=== PATIENT | male | born 1960 | race Caucasian/White ===

== ENCOUNTER 2016-10-25 18:23 | Emergency (ER) | payer MEDICAID ==
[~2016-10-25] VITALS: Ht 177.8 cm; Wt 58.0 kg
[~2016-10-25 18:23] MED LIST: KENC1 TOP; SLEEPING PILL
[2016-10-25 18:42] VITALS: Ht 177.8 cm; Wt 58.0 kg
[2016-10-25] MEDS ORDERED: IBUPROFEN 600 MG TAB PO ONE (21:30)
--- NOTE | 2016-10-25 21:41 | RADRPT ---
PROCEDURE: Right knee radiographs. CLINICAL INDICATION: Trauma due to a fall. Right knee pain. TECHNIQUE: Three views. Frontal, lateral, and oblique. COMPARISON: 02/03/2014 FINDINGS: In the interval since the prior study, there has been marked progression of osteoarthritis with medi al and lateral joint compartment narrowing, subarticular sclerosis, large osteophytes, and deformity . There is a joint effusion. There is deformity of the medial tibial plateau which may be due to the osteoarthritis or fracture. There is no lytic or blastic lesion. There is no radiopaque foreign body. IMPRESSION: 1. Marked progression of osteoarthritis. 2. Joint effusion. 3. Deformity of the medial tibial plateau which may be due to the osteoarthritis or fracture. Danuta elation with CT scan or MRI should be considered. 4. No other acute abnormality. RPTAT: QQ .Lion Hardy MD, MD Date Time Electronically viewed and signed by .Lion Hardy MD, on 10/25/2016 21:40 .R/
--- NOTE | 2016-10-26 00:23 | ERD ---
ER Documentation Chief Complaint Date/Time DATE: 10/26/16 TIME: 00:07 Chief Complaint Right knee pain X5 months HPI Patient is a 56-year-old male complaining of right knee pain status post fall today. Patient states that he was using a FWW and fell while turning in a corner. Patient landed on his right knee and denies any head trauma or loss of consciousness. Patient states that he also fell 4 months ago. Right knee pain is aggravated upon ambulation. Denies any numbness or tingling on both lower extremities. Patient lives in a residential facility and states that he does not want go back there upon discharge. ROS All systems reviewed and are negative except as per history of present illness. Medications Home Meds Active Scripts Triamcinolone Acetonide (Triamcinolone Acetonide) 0.1% - 15 Gm Cream.gm., 1 APPLIC TOP BID for 7 Days, #1 TUB Prov:PAIGE WOOD MD 01/15/16 Reported Medications [Sleeping Pill] No Conflict Check 03/26/11 Allergies Allergies: Coded Allergies: No Known Drug Allergies (Verified Allergy, Unknown, 01/15/16) PMhx/Soc Medical and Surgical Hx: pt denies Surgical Hx History of Surgery: No Anesthesia Reaction: No Hx Neurological Disorder: No Hx Respiratory Disorders: No Hx Cardiac Disorders: No Hx Psychiatric Problems: Yes (BIPOLAR) Hx Miscellaneous Medical Probl: No Hx Alcohol Use: No Hx Substance Use: No Hx Tobacco Use: Yes (1 ppd) Smoking Status: Current every day smoker Physical Exam Vitals Vital Signs Date Time Temp Pulse Resp B/P Pulse Ox O2 Delivery O2 Flow Rate FiO2 10/25/16 18:42 99.0 81 20 133/77 98 Physical Exam Physical Exam CONST: Well-developed, well-nourished, in no acute distress. Nontoxic in appearance. HEENT: Atraumatic. Normal conjunctiva. EOM intact. TM intact. External ear is normal. Clear oropharnyx without erythema. No uvular deviation. Moist mucous membranes. Supple neck. No meningismus. No submandibular induration. RESP: Clear to auscultation bilaterally. No wheezing. CARDIO: Regular rate and rhythm, no murmurs. ABD: Soft, non tender, non distended. Normal bowel sounds. No McBurney's point tenderness. No guarding or rigidity. No peritoneal signs. SKIN: No petechiae or rashes. BACK: No midline or flank tenderness. EXT: Tenderness on the right anterior knee. No cyanosis or edema. Distal pulses equal and bilateral. NEURO: Awake and alert, appropriate for age. Results 24 hrs Current Medications Medications (Trade) Dose Ordered Sig/Raz Route PRN Reason Start Time Stop Time Status Last Admin Dose Admin Ibuprofen (Motrin) 600 mg ONCE ONCE PO 10/25/16 21:30 10/25/16 21:31 DC 10/25/16 21:16 PROCEDURE: Right knee radiographs. CLINICAL INDICATION: Trauma due to a fall. Right knee pain. TECHNIQUE: Three views. Frontal, lateral, and oblique. COMPARISON: 02/03/2014 FINDINGS: In the interval since the prior study, there has been marked progression of osteoarthritis with medial and lateral joint compartment narrowing, subarticular sclerosis, large osteophytes, and deformity. There is a joint effusion. There is deformity of the medial tibial plateau which may be due to the osteoarthritis or fracture. There is no lytic or blastic lesion. There is no radiopaque foreign body. IMPRESSION: 1. Marked progression of osteoarthritis. 2. Joint effusion. 3. Deformity of the medial tibial plateau which may be due to the osteoarthritis or fracture. Correlation with CT scan or MRI should be considered. 4. No other acute abnormality. RPTAT: QQ .Paige Hardy MD, MD Date Time Electronically viewed and signed by .Paige Hardy MD, MD on 10/25/2016 21:40 Procedures/MDM EMERGENCY DEPARTMENT COURSE/MEDICAL DECISION MAKING This is a 56-year-old male who comes to the emergency room secondary to complaints of right knee pain status post mechanical fall. Patient lives and a residential facility and he wishes not to go back to upon discharge. Spoke with protective services social worker Corey regarding the patient's wishes. She contacted the facility ([facility] tel: [phone]) and per protective services social worker, patient has to go back to the facility to fill the paperwork in order for him to be transferred. The patient was given ibuprofen in the department. On re-evaluation, the patient 's symptoms improved. Right knee x-ray was done and was interpreted by a radiologist. Results shows marked progression of osteoarthritis, joint effusion and deformity of the medial tibial plateau which may be due to the osteoarthritis or fracture. Correlation with CT scan or MRI should be considered. Case was presented to Dr. Patterson and he recommended to order a CT of the right lower extremity. Patient left AGAINST MEDICAL ADVICE prior to CT scan. Patient has been told about the risks and consequences involved in leaving the hospital. Patient signed the AMA form. My primary diagnosis is pain of left leg. Secondary diagnosis is injury of left leg Differential diagnoses considered but not limited to fractures, dislocations, compartment syndrome, neurologic injury, vascular injury, tendon laceration, septic arthritis, osteomyelitis, DVT, foreign body, muscle sprain/strain.. Departure Diagnosis: Primary Impression: Pain of left leg Additional Impression: Injury of left leg Encounter type: initial encounter Qualified Code: S89.92XA - Injury of left leg, initial encounter Condition: Stable Patient Instructions: Fall Prevention, Knee Pain, Uncertain Cause [facility]: [facility] Additional Instructions: Follow-up with an police specialist in 1 week. Follow-up with your primary care physician in 1-2 days. Return to the emergency department immediately should you have any new or worsening symptoms, uncontrolled fevers, or other unexplained symptoms. Take all medications as directed. KELTON PEREA Oct 26, 2016 00:22
== END 2016-10-25 22:46 | disposition left against medical advice (07) ==
LOC: FTE 18:23
DX: S89.92XA Unspecified injury of left lower leg, initial encounter (principal); F17.210 Nicotine dependence, cigarettes, uncomplicated; V68.9XXA Unspecified occupant of heavy transport vehicle injured in noncollision transport accident in traffic accident, initial encounter
CPT/HCPCS: 73562; Z7610

== ENCOUNTER 2018-07-22 15:55 | Emergency (ER) | END 2018-07-22 16:44 | disposition home or self-care (01) ==

== ENCOUNTER 2018-10-20 17:55 | Emergency (ER) | payer MEDICAID ==
[~2018-10-20] VITALS: Ht 177.8 cm; Wt 60.3 kg
[~2018-10-20 17:55] MED LIST changes: -KENC1 TOP; +NAPR-985 PO; -SLEEPING PILL
[2018-10-20 18:34] VITALS: Ht 177.8 cm; Wt 60.3 kg
[2018-10-20] MEDS ORDERED: KETOROLAC 30 MG INJ IM STA (22:37)
[2018-10-20] MEDS ORDERED: HYDROCODONE/APAP (5/325) TAB PO ONE (23:00)
[2018-10-21] MEDS ORDERED: NAPR-985 PO (01:43)
--- NOTE | 2018-10-21 01:48 | ERD ---
ER Documentation Chief Complaint Chief Complaint pain right knee/right ankle x 3 years, more today. denies injury HPI 38-year-old male coming in today with Chief Complaint: Right extremity pain History of Present Illness: Patient reporting right knee and ankle pain present for 3 years, history of having to get her ER visits and medications for pain. Patient reports exacerbation of pain in the past 2-3 days. Denies injury or trauma. Denies any other associated symptoms. Denies use of medications at home for pain. Review of systems: All systems were reviewed and are negative except for what is indicated in the history of present illness. Past Medical History: Diabetes Social History: Patient reports tobacco and alcohol use. Denies drug use. Medications: See nursing documentation Allergies: NKDA Social Concerns: Patient reports homelessness ROS All systems reviewed and are negative except as per history of present illness. Medications Home Meds Active Scripts Naproxen* (Naprosyn*) 500 Mg Tablet, 500 MG PO BID PRN for PAIN AND/OR INFLAMMATION, #60 TAB Prov:SELENA RATLIFF NP 10/21/18 Naproxen* (Naprosyn*) 500 Mg Tablet, 500 MG PO BID PRN for PAIN AND/OR INFLAMMATION, #60 TAB Prov:RENETTA HUGHES MD 07/22/18 Allergies Allergies: Coded Allergies: No Known Drug Allergies (Verified Allergy, Unknown, 07/22/18) PMhx/Soc History of Surgery: No Anesthesia Reaction: No Hx Neurological Disorder: No Hx Respiratory Disorders: No Hx Cardiac Disorders: No Hx Psychiatric Problems: Yes (BIPOLAR) Hx Miscellaneous Medical Probl: Yes (DM, homeless) Hx Alcohol Use: No Hx Substance Use: No Hx Tobacco Use: No Smoking Status: Never smoker Physical Exam Vitals Vital Signs Date Temp Pulse Resp B/P (MAP) Pulse Ox O2 O2 Flow FiO2 Time Delivery Rate 10/20/18 98.3 79 18 135/75 97 18:34 (95) Physical Exam Const: No acute distress Head: Atraumatic Eyes: Normal Conjunctiva ENT: Normal External Ears, Nose and Mouth. Neck: Full range of motion. No meningismus. Resp: Clear to auscultation bilaterally Cardio: Regular rate and rhythm, no murmurs Abd: Soft, non tender, non distended. Normal bowel sounds Skin: No petechiae or rashes Back: No midline or flank tenderness Ext: No cyanosis, or edema. No erythema, warmth, swelling noted to right knee and right ankle. NVI distally. Neur: Awake and alert Psych: Normal Mood and Affect Results 24 hrs Current Medications Medications Dose Sig/Raz Start Time Status Last (Trade) Ordered Route PRN Stop Time Admin Dose Reason Admin 1 tab ONCE ONCE 10/20/18 DC 10/20/18 Acetaminophen PO 23:00 22:46 / 10/20/18 23:01 Hydrocodone Bitart (Downey (5/325)) Ketorolac 30 mg ONCE STAT 10/20/18 DC Tromethamine IM 22:37 (Toradol) 10/20/18 22:40 Procedures/MDM ED course includes a thorough examination and history. ED course includes medication administration; Toradol and Downey. ED course includes Bucky wrap administration. ED course includes older adult social work specialist consult due to homelessness. Low suspicion for life-threatening medical emergency Otherwise healthy patient presenting with constellation of symptoms likely representing uncomplicated arthritis as characterized by history, physical exam findings. No respiratory distress, otherwise relatively well appearing and nontoxic. Patient educated on diagnoses, prescriptions, follow-up care, return precautions. Strict return precautions given for worsening condition; questions answered discharge. Conditional discharge pending older adult social work specialist consult. Disposition for discharge with followup in 2-3 days with PCP/clinic. Departure Diagnosis: Primary Impression: Right ankle pain Chronicity: acute Qualified Codes: M25.571 - Pain in right ankle and joints of right foot Additional Impression: Right knee pain Chronicity: acute Qualified Codes: M25.561 - Pain in right knee Condition: Stable Patient Instructions: Arthralgia Referrals: [facility] YOU HAVE RECEIVED A MEDICAL SCREENING EXAM AND THE RESULTS INDICATE THAT YOU DO NOT HAVE A CONDITION THAT REQUIRES URGENT TREATMENT IN THE EMERGENCY DEPARTMENT. FURTHER EVALUATION AND TREATMENT OF YOUR CONDITION CAN WAIT UNTIL YOU ARE SEEN IN YOUR DOCTORS OFFICE WITHIN THE NEXT 1-2 DAYS. IT IS YOUR RESPONSIBILITY TO MAKE AN APPOINTMENT FOR FOLOW-UP CARE. IF YOU HAVE A PRIMARY DOCTOR --you should call your primary doctor and schedule an appointment IF YOU DO NOT HAVE A PRIMARY DOCTOR YOU CAN CALL OUR PHYSICIAN REFERRAL HOTLINE AT IF YOU CAN NOT AFFORD TO SEE A PHYSICIAN YOU CAN CHOSE FROM THE FOLLOWING [facility] [address] [facility] [address] [facility] [address] [facility] [address] [facility] [address] [facility] [address] [facility]. [facility] [address] [facility]. [facility] YOU HAVE RECEIVED A MEDICAL SCREENING EXAM AND THE RESULTS INDICATE THAT YOU DO NOT HAVE A CONDITION THAT REQUIRES URGENT TREATMENT IN THE EMERGENCY DEPARTMENT. FURTHER EVALUATION AND TREATMENT OF YOUR CONDITION CAN WAIT UNTIL YOU ARE SEEN IN YOUR DOCTORS OFFICE WITHIN THE NEXT 1-2 DAYS. IT IS YOUR RESPONSIBILITY TO MAKE AN APPOINTMENT FOR FOLOW-UP CARE. IF YOU HAVE A PRIMARY DOCTOR --you should call your primary doctor and schedule and appointment IF YOU DO NOT HAVE A PRIMARY DOCTOR YOU CAN CALL OUR PHYSICIAN REFERRAL HOTLINE AT . IF YOU CAN NOT AFFORD TO SEE A PHYSICIAN YOU CAN CHOSE FROM THE FOLLOWING [facility] INSTITUTIONS: [facility] [address] [place] [address] [facility] [address] [place] [address] [facility] [address] [place] [address] Additional Instructions: Call your primary care doctor TOMORROW for an appointment during the next 2-3 days.See the doctor sooner or return here if your condition worsens before your appointment time. See primary care doctor/clinic for further evaluation of symptoms to determine if further workup is indicated. SELENA RATLIFF NP Oct 21, 2018 01:48
[2018-10-21 02:05] VITALS: BP 132/73; PULSE 74; RESP 22
== END 2018-10-21 02:07 | disposition home or self-care (01) ==
LOC: FTE 17:55
DX: M25.571 Pain in right ankle and joints of right foot (principal); M25.561 Pain in right knee; E11.9 Type 2 diabetes mellitus without complications
CPT/HCPCS: Z7502; Z7610; J1885

== ENCOUNTER 2019-02-02 18:58 | Emergency (ER) | payer MEDICAID ==
[~2019-02-02] VITALS: Ht 177.8 cm; Wt 50.0 kg
[2019-02-02 18:58] VITALS: Ht 177.8 cm; Wt 50.0 kg
--- NOTE | 2019-02-02 19:03 | ERD ---
ER Documentation Chief Complaint Chief Complaint Chronic right knee pain HPI The patient is a 58-year-old male, presenting to the ER because of chronic right knee pain for more than 8 months, denies any recent trauma, denies headache, neck pain, chest pain, dyspnea, abdominal pain, vomiting. He smokes and drinks, denies illicit drug Past medical history: Bipolar, depression Past surgical history: None ROS All systems reviewed and are negative except as per history of present illness. Medications Home Meds Active Scripts Ibuprofen* (Motrin*) 600 Mg Tab, 600 MG PO Q6H PRN for PAIN, #20 TAB Prov:ESAU THURSTON MD 02/02/19 Naproxen* (Naprosyn*) 500 Mg Tablet, 500 MG PO BID PRN for PAIN AND/OR INFLAMMATION, #60 TAB Prov:SELENA RATLIFF NP 10/21/18 Naproxen* (Naprosyn*) 500 Mg Tablet, 500 MG PO BID PRN for PAIN AND/OR INFLAMMATION, #60 TAB Prov:RENETTA HUGHES MD 07/22/18 Allergies Allergies: Coded Allergies: No Known Drug Allergies (Verified Allergy, Unknown, 07/22/18) PMhx/Soc History of Surgery: No Anesthesia Reaction: No Hx Neurological Disorder: No Hx Respiratory Disorders: No Hx Cardiac Disorders: No Hx Psychiatric Problems: Yes (BIPOLAR) Hx Miscellaneous Medical Probl: Yes (DM, homeless) Hx Alcohol Use: No Hx Substance Use: No Hx Tobacco Use: No Physical Exam Vitals Vital Signs Date Temp Pulse Resp B/P (MAP) Pulse Ox O2 O2 Flow FiO2 Time Delivery Rate 02/02/19 80 17 115/70 96 Room Air 19:22 (85) 02/02/19 98.3 83 17 117/74 95 18:58 (88) Physical Exam Const: No acute distress. Head: Atraumatic. Eyes: Normal Conjunctiva. ENT: Normal External Ears, Nose and Mouth. Neck: Full range of motion. No meningismus. Resp: Clear to auscultation bilaterally. Cardio: Regular rate and rhythm. Abd: Soft, non distended, normal bowel sounds, non tender. Skin: No petechiae or rashes. Back: No midline or flank tenderness. Ext: No cyanosis, or edema. Right knee with full range of motion, no calf tenderness Neur: Awake and alert. No focal deficit Psych: Normal Mood and Affect. Results 24 hrs Laboratory Tests Test 02/02/19 19:14 Bedside Glucose 82 mg/dL Current Medications Medications Dose Sig/Raz Start Time Status Last (Trade) Ordered Route PRN Stop Time Admin Dose Reason Admin Ibuprofen 600 mg ONCE ONCE 02/02/19 DC 02/02/19 (Motrin) PO 19:30 02/02/19 19:28 19:31 Procedures/MDM MEDICAL MAKING DECISION: The patient is a 58-year-old male, presenting with chronic right knee pain, treated with Motrin and Bucky wrap, is stable for outpatient follow-up The differential diagnoses considered include but are not limited to contusion, sprain, fracture, internal derangement Departure Diagnosis: Primary Impression: Chronic pain Condition: Good Comments I discussed the findings with the patient. I advised the patient to follow-up with the primary physician in about 1-2 days, sooner if needed and return if any concern, advised he need MRI for further eval if the pain is persistent. Disclaimer: Inadvertent spelling and grammatical errors are likely due to EHR/dictation software use and do not reflect on the overall quality of patient care. Also, please note that the electronic time recorded on this note does not necessarily reflect the actual time of the patient encounter. ESAU THURSTON MD Feb 02, 2019 19:03
[2019-02-02] MEDS ORDERED: IBUP-1542 PO (19:20)
[2019-02-02 19:22] VITALS: BP 115/70; PULSE 80; RESP 17
[2019-02-02] MEDS ORDERED: IBUPROFEN 600 MG TAB PO ONE (19:30)
== END 2019-02-02 19:40 | disposition home or self-care (01) ==
LOC: E/R 18:58
DX: M25.561 Pain in right knee (principal); E11.9 Type 2 diabetes mellitus without complications; Z59.0 Homelessness
CPT/HCPCS: 82962; Z7502; Z7610; 99283

== ENCOUNTER 2019-02-06 23:09 | Emergency (ER) | payer MEDICAID ==
[~2019-02-06] VITALS: Ht 167.6 cm; Wt 65.0 kg
[~2019-02-06 23:09] MED LIST changes: +IBUP-1542 PO
[2019-02-06 23:14] VITALS: Ht 167.6 cm; Wt 65.0 kg
--- NOTE | 2019-02-06 23:39 | ERD ---
ER Documentation Chief Complaint Chief Complaint bib ra from street for etoh, HPI This is a 58-year-old male with a past medical history of bipolar disorder, diabetes, alcohol abuse, reportedly residing at a [facility] who is presenting from the streets found sleeping on the sidewalk. The patient reports that he drinks on Fridays and does admit to drinking shots of hard liquor this evening. The patient's primary complaint is chronic right knee pain and is requesting pain medication for this. The patient is also requesting something to eat and would like an ambulance back to his [facility]. He denies any trauma or injury. He did not fall. He has no other complaints. The patient denies feeling sick recently. The patient denies fever or chills. The patient has had no headache or vision changes. The patient does not endorse neck or back pain. The patient denies lightheadedness or dizziness. The patient has had no chest pain or trouble breathing. The patient denies nausea or vomiting. The patient denies abdominal pain. The patient denies changes to bowel movements or urination. The patient has had no focal deficits. The patient has had no weakness or numbness or tingling to the face or extremities. ROS All systems reviewed and are negative except as per history of present illness. Medications Home Meds Active Scripts Ibuprofen* (Motrin*) 600 Mg Tab, 600 MG PO Q6H PRN for PAIN, #20 TAB Prov:ESAU THURSTON MD 02/02/19 Naproxen* (Naprosyn*) 500 Mg Tablet, 500 MG PO BID PRN for PAIN AND/OR INFLAMMATION, #60 TAB Prov:SELENA RATLIFF NP 10/21/18 Naproxen* (Naprosyn*) 500 Mg Tablet, 500 MG PO BID PRN for PAIN AND/OR INFLAMMATION, #60 TAB Prov:RENETTA HUGHES MD 07/22/18 Allergies Allergies: Coded Allergies: No Known Drug Allergies (Verified Allergy, Unknown, 07/22/18) PMhx/Soc History of Surgery: No Anesthesia Reaction: No Hx Neurological Disorder: No Hx Respiratory Disorders: No Hx Cardiac Disorders: No Hx Psychiatric Problems: Yes (BIPOLAR) Hx Miscellaneous Medical Probl: Yes (DM, homeless) Hx Alcohol Use: No Hx Substance Use: No Hx Tobacco Use: No FmHx Family History: diabetes Physical Exam Vitals Vital Signs Date Temp Pulse Resp B/P (MAP) Pulse Ox O2 O2 Flow FiO2 Time Delivery Rate 02/06/19 98.7 78 19 100/56 100 23:14 (71) Physical Exam Const: No apparent distress, well-developed. Disheveled Head: Normocephalic, Atraumatic Eyes: Normal Conjunctiva. Extraocular movements intact. Pupils equal, round and reactive to light ENT: Normal External Ears, Nose. Dry mucous membranes. Neck: Full range of motion. No meningismus. Resp: Clear to auscultation bilaterally, No wheezes, rales or rhonchi Cardio: Regular rate and rhythm. No murmurs, rubs or gallops Abd: Soft, non tender, non distended. Normal bowel sounds Skin: No petechiae or rashes Back: No midline tenderness. No CVA tenderness Ext: No cyanosis, or edema. No palpable knee tenderness bilaterally. No deformities to the knees bilaterally. Full range of motion to the knees bilaterally. Neur: Awake and alert. Cranial nerves intact. No facial droop. Normal strength, sensation and coordination. Psych: Normal Mood and Affect. No SI or HI. No AH or VH. Procedures/MDM MDM The patient's presentation warrants further investigation. Previous medical [facility] r[facility], if available, were reviewed. TREATMENT/DISPOSITION The patient presents primarily for alcohol intoxication. He was found sleeping outside on the sidewalk. The patient knows that he fell asleep on the sidewalk. There is no evidence of trauma or injury. The neurologic exam is reassuring. I have decreased suspicion for cerebral ischemia. There was no trauma or injury. There is no personal or family history of cerebral aneurysm. I have decreased suspicion for SAH or other ICH. I have low suspicion for temporal arteritis, cavernous venous thrombosis, subdural hematoma, epidural hematoma, meningitis. I do not feel that advanced imaging is required at this time. That said, the patient is alert and oriented at this time. He is simply requesting something for his chronic knee pain and some food to eat. He is also requesting an ambulance for transfer back to his facility. I do feel that this is appropriate at this time. I do not suspect syncope. The patient has a reassuring physical exam. The patient is not clinically orthostatic. The patient is not dizzy. I have decreased suspicion for vertigo. The patient has no signs of emergent or symptomatic anemia. I have low suspicion for an emergent electrolyte or metabolic emergencies. I have decrease suspicion for a thyroid disorder. The patient is not toxic appearing. I have decreased suspicion for an infectious etiology of symptoms. I have low suspicion for acute coronary syndrome. I do not see evidence of any emergent cardiac arrhythmia, which includes but is not limited to heart block, Brugada syndrome or WPW. The patient has no heart murmurs or rales. I have low suspicion for hypertrophic cardiomyopathy. I do not see evidence of CHF. The patient does not endorse any chest or pleuritic pain. The history is negative for bleeding or clotting disorders. The patient has not been involved in any recent prolonged trips or surgeries or hospitalizations. The patient has no calf tenderness or swelling. I have decreased suspicion for PE as the etiology of symptoms. The patient will be observed in the emergency department until clinical sobriety. DISCHARGE No emergent diagnoses were identified. At this time, I feel that the patient stable for discharge. The patient was instructed to follow-up with a primary care physician in 1-3 days. The patient will be given strict precautions with which to return to the emergency department. Prescriptions: None Disclaimer: Inadvertent spelling and grammatical errors are likely due to EHR/dictation software use and do not reflect on the overall quality of patient care. Note that the electronic time recorded on this note does not necessarily reflect the actual time of the patient encounter. Departure Diagnosis: Primary Impression: Alcoholic intoxication Complication of substance-induced condition: uncomplicated Qualified Codes: F10.920 - Alcohol use, unspecified with intoxication, uncomplicated Additional Impression: Chronic pain of right knee Condition: Stable Patient Instructions: Alcohol Intoxication, Knee Pain, Uncertain Cause Additional Instructions: Thank you for for coming to [facility] for your care today. Please ask your nurse or provider if you have questions about your care today an d do not leave until all your questions have been answered. Please use any medications given as directed and follow-up with your doctor (or the doctor you were referred to) in the next 1-3 days. If you do not have a primary care doctor you may follow up at the [facility] or [facility] (listed below). You may also use motrin and tylenol as needed for fever and/or pain unless instructed otherwise by your provider or nurse. Indications for more urgent follow-up have been discussed, but you may return to the Emergency Department at ANY time for any worrisome or worsening symptoms. If you have abdominal pain, please know that no test or exam you received is perfect and you should follow up within 8 hours for continued pain. If you had any imaging studies today, such as an X-Ray or CT Scan, these studies will be reviewed later by a radiologist. You will be called if there are important findings that were not identified today, so make sure the contact information you provided at registration is correct. If you received any narcotic pain control medicine today, such as Vicodin, Morphine or Dilaudid, your coordination and judgment may be affected for a number of hours. Please do not drive or operate heavy machinery, and you may want someone to assist you at home. If you were given a prescription for narcotic medication, be aware that it is very addictive- use sparingly and only if necessary. PLEASE SEEK FURTHER EVALUATION AND MANAGEMENT AT YOUR DOCTORS OFFICE WITHIN THE NEXT 1-3 DAYS. IT IS YOUR RESPONSIBILITY TO MAKE AN APPOINTMENT FOR FOLOW-UP CARE. IF YOU HAVE A PRIMARY DOCTOR, PLEASE CALL THEIR OFFICE TO SCHEDULE AN APPOINTM ENT FOR FOLLOW UP. IF YOU DO NOT HAVE A PRIMARY DOCTOR YOU CAN CALL OUR PHYSICIAN REFERRAL HOTLINE AT IF YOU CAN NOT AFFORD TO SEE A PHYSICIAN YOU CAN CHOSE FROM THE FOLLOWING [facility] CL[facility]ICS: [facility] [address] [facility] [address] [facility] [address] [facility] [facility] [address] [facility] [address] [facility]. [facility]. [address] MARY ANN MCKEON MD Feb 06, 2019 23:38
[2019-02-07] MEDS ORDERED: IBUPROFEN 600 MG TAB PO ONE
[2019-02-07 02:30] VITALS: BP 114/74; PULSE 92; RESP 16
== END 2019-02-07 02:30 | disposition home or self-care (01) ==
LOC: E/R 23:09
DX: F10.920 Alcohol use, unspecified with intoxication, uncomplicated (principal); G89.29 Other chronic pain; E11.9 Type 2 diabetes mellitus without complications; M25.561 Pain in right knee
CPT/HCPCS: 99282